=== PATIENT | female | born 1945 | race Caucasian/White ===

== ENCOUNTER 2023-05-19 17:01 | Inpatient (IN) | payer MEDICARE ==
[~2023-05-19] VITALS: Ht 157.5 cm; Wt 68.0 kg
[2023-05-19] MEDS ORDERED: potassium Cl 40MEQ/1/2NS 520ml 520 ML IV PRN (20:05)
[2023-05-19] MEDS ORDERED: magnesium 2GM in 50ml NS 50 ML IV PRN (20:05)
[2023-05-19] MEDS ORDERED: potassium Cl 20 mEq SR tablet PO PRN ×2 (20:05)
[2023-05-19] MEDS ORDERED: normal saline 1000ml 1,000 ML IV SCH (20:05)
[2023-05-19] MEDS ORDERED: acetaminophen 325mg tablet PO PRN ×2 (20:05)
[2023-05-19] MEDS ORDERED: morphine 2 MG/ML inj. syringe IV PRN ×2 (20:05)
[2023-05-19] MEDS ORDERED: magnesium 4gm in 100ml NS 100 ML IV PRN (20:05)
[2023-05-19] MEDS ORDERED: ondansetron/PF 4mg/2ml inj IV PRN (20:05)
[2023-05-19] MEDS ORDERED: magnesium Cl slow-release 64mg tablet PO PRN (20:05)
[2023-05-20] VITALS (10 sets, daily range): BP systolic 134–164; BP diastolic 62–119; PULSE 60–81; RESP 14–22; TEMP 98.5–98.7; O2SAT 97–100
[2023-05-20] MEDS ORDERED: TRIA1TAB3 PO (00:04)
[2023-05-20] MEDS ORDERED: ATEN100T PO (00:04)
[2023-05-20] MEDS ORDERED: OMEP40CA21 PO (00:04)
[2023-05-20] MEDS ORDERED: LIDOcaine Viscous 15ml cup ONE (06:22)
[2023-05-20] MEDS ORDERED: glucagon, human recombinant 1mg kit ONE (06:22)
[2023-05-20] MEDS ORDERED: levoFLOXACIN-Levaquin 500mg/D5 100 ML IV ONE (06:23)
[2023-05-20] MEDS ORDERED: iohexol 300mg/ml 100ml inj. ONE (06:23)
--- NOTE | 2023-05-20 06:30 | NUR ---
PT TO GI VIA WHEELCHAIR
--- NOTE | 2023-05-20 06:49 | NUR ---
CALLED GI, THEY WILL TAKE PT. STRAIGHT TO ROOM [id number] WHEN PROCEDURE IS COMPLETE. REPORT HAS BEEN CALLED TO JEROME PAGAN
[2023-05-20] MEDS ORDERED: MIDAZolam 1 MG/ML 5ML VIAL ONE (06:59)
[2023-05-20] MEDS ORDERED: fentaNYL/PF 50MCG/1 ML 2ML syringe ONE (06:59)
[2023-05-20] MEDS ORDERED: enoxaparin 40mg/0.4ml syringe SUBCUT SCH (08:00)
[2023-05-20] MEDS: ringers solution, lacted 1,000 ML IV SCH ×2 (09:57→15:25)
[2023-05-20 12:10] LABS: MEAN CORPUSCULAR HEMOGLOBIN 29.9 PG (27.0-31.0); MEAN CORPUSCULAR HGB CONC 33.9 g/dL (33.0-36.5)
[2023-05-20 12:13] LABS: HEMATOCRIT 32.4 % (35.0-45.0); MEAN CORPUSCULAR VOLUME 88.1 FL (78-98); MEAN PLATELET VOLUME 11.8 FL (7.4-10.4); PLATELET COUNT 306 X10'3 (140-440); RED BLOOD COUNT 3.68 X10'6 (4.20-5.60); RED CELL DISTRIBUTION WIDTH 15.1 % (11.5-14.5)
[2023-05-20 12:34] LABS: APTT 31 SECONDS (22-32)
[2023-05-20 12:56] LABS: ALANINE AMINOTRANSFERASE 197 U/L (12-78); ALBUMIN 2.4 G/DL (3.4-5.0); ANION GAP 10 (8-16); BILIRUBIN,TOTAL 14.8 MG/DL (0.1-1.0); BLOOD UREA NITROGEN 15 MG/DL (7-18); BUN/CREATININE RATIO 21.4 (10.0-20.0); CALCIUM 9.1 MG/DL (8.5-10.1); CHLORIDE 101 MMOL/L (99-107); SODIUM 139 MMOL/L (135-145); TOTAL CARBON DIOXIDE 27.8 MMOL/L (24-32); eCRCL 52 ML/MIN; eGFR 81 ML/MIN
[2023-05-20 12:58] LABS: ALBUMIN/GLOBULIN RATIO 0.6 (1.1-1.5); ALKALINE PHOSPHATASE 1308 IU/L (46-116); ASPARTATE AMINO TRANSFERASE 216 U/L (10-37); GLUCOSE 94 MG/DL (70-104); POTASSIUM 3.3 MMOL/L (3.5-5.1); TOTAL PROTEIN 6.4 G/DL (6.4-8.2)
[2023-05-20 14:26] LABS: HYPOCHROMASIA 2+; PLATELET ESTIMATE NORMAL; TARGET CELLS 1+; TOTAL CELLS COUNTED 100
--- NOTE | 2023-05-20 18:00 | NUR ---
Patient in room ORTHO 4015. I have received report from EJ Houston and had the opportunity to ask questions and assume patient care.
--- NOTE | 2023-05-20 18:40 | NUR ---
Problems reprioritized. Patient report given, questions answered & plan of care reviewed with EJ Mustafa.
[2023-05-20] MEDS ORDERED: ringers solution, lacted 1,000 ML IV SCH (20:45)
[2023-05-21 06:00] VITALS: BP 167/74; PULSE 71; RESP 16; TEMP 98.2; O2SAT 99
--- NOTE | 2023-05-21 06:11 | NUR ---
Problems reprioritized. Patient report given, questions answered & plan of care reviewed with EJ Houston.
[2023-05-21 06:33] LABS: BASOPHILS # (AUTO) 0.1 X10'3 (0-0.2); BASOPHILS % (AUTO) 0.7 % (0-1); EOSINOPHILS # (AUTO) 0.9 X10'3 (0-0.9); EOSINOPHILS % (AUTO) 12.9 % (0-6); HEMATOCRIT 32.1 % (35.0-45.0); LYMPHOCYTES # (AUTO) 1.5 X10'3 (1.1-4.8); LYMPHOCYTES % (AUTO) 20.2 % (21-51); MEAN CORPUSCULAR HEMOGLOBIN 30.1 PG (27.0-31.0); MEAN CORPUSCULAR HGB CONC 34.3 g/dL (33.0-36.5); MEAN CORPUSCULAR VOLUME 87.8 FL (78-98); MEAN PLATELET VOLUME 11.2 FL (7.4-10.4); MONOCYTES # (AUTO) 0.8 X10'3 (0-0.9); MONOCYTES % (AUTO) 11.8 % (2-12); NEUTROPHILS # (AUTO) 3.9 X10'3 (1.8-7.7); NEUTROPHILS % (AUTO) 54.4 % (42-75); PLATELET COUNT 323 X10'3 (140-440); RED BLOOD COUNT 3.66 X10'6 (4.20-5.60); RED CELL DISTRIBUTION WIDTH 14.9 % (11.5-14.5); WHITE BLOOD COUNT 7.2 X10'3 (4.5-11.0)
[2023-05-21 06:34] LABS: APTT 32 SECONDS (22-32)
[2023-05-21 06:48] LABS: ALANINE AMINOTRANSFERASE 194 U/L (12-78); ALBUMIN 2.3 G/DL (3.4-5.0); ANION GAP 7 (8-16); ASPARTATE AMINO TRANSFERASE 219 U/L (10-37); BILIRUBIN,TOTAL 8.1 MG/DL (0.1-1.0); BLOOD UREA NITROGEN 11 MG/DL (7-18); BUN/CREATININE RATIO 12.2 (10.0-20.0); CALCIUM 8.9 MG/DL (8.5-10.1); CHLORIDE 102 MMOL/L (99-107); GLUCOSE 105 MG/DL (70-104); POTASSIUM 3.4 MMOL/L (3.5-5.1); SODIUM 138 MMOL/L (135-145); TOTAL CARBON DIOXIDE 29.5 MMOL/L (24-32); eCRCL 40 ML/MIN; eGFR 60 ML/MIN
--- NOTE | 2023-05-21 06:54 | NUR ---
Patient in room ORTHO 4015. I have received report from EJ Mustafa and had the opportunity to ask questions and assume patient care.
[2023-05-21 07:02] LABS: ALBUMIN/GLOBULIN RATIO 0.6 (1.1-1.5); ALKALINE PHOSPHATASE 1368 IU/L (46-116); TOTAL PROTEIN 6.2 G/DL (6.4-8.2)
[2023-05-21 07:27] VITALS: BP_SYST 167; PULSE 71
[2023-05-21] MEDS ORDERED: atenolol 50mg tablet PO SCH (08:00)
[2023-05-21 08:50] LABS: LARGE PLATELETS FEW; PLATELET ESTIMATE NORMAL
[2023-05-21] MEDS ORDERED: LISI5TAB22 PO (12:34)
--- NOTE | 2023-05-21 13:40 | NUR ---
pt given discharge packet and was able to ask questions upon discharge. Pt wheelchaired down to lobby with all of her belongings, stable and in no distress. Pt left in a private vehicle with her son.
[2023-05-22] MEDS ORDERED: LISI5TAB22 PO (13:41)
== END 2023-05-21 13:40 | disposition home or self-care (01) | DRG 435 ==
LOC: ER 17:04 → UNDOADMIN 20:10 → ED HOLD 20:10 → EDBEDREQSVC 05-20 06:08 → EDBEDREQ 05-20 06:08 → ORTHO 4S 05-20 09:28
PROVIDERS: ADMIT Internal Medicine; ATTEND Internal Medicine
PROC: 0F798DZ Dilation of Common Bile Duct with Intraluminal Device, Via Natural or Artificial Opening Endoscopic (ICD-10-PCS; principal; 2023-05-20)
DX: C25.9 Malignant neoplasm of pancreas, unspecified (principal); K83.1 Obstruction of bile duct; B17.9 Acute viral hepatitis, unspecified; R17 Unspecified jaundice; K86.9 Disease of pancreas, unspecified; K21.9 Gastro-esophageal reflux disease without esophagitis; I10 Essential (primary) hypertension
CPT/HCPCS: 36415; 43261; 43274; 80053; 82378; 83605; 83690; 85007; 85008; 85025; 85730; 86301; 87040; 88108; 99152; 99153; 99285; A4620; C1769; C2625; G0378; J1610; J1956; J2250; J3010; J7030; J7120; Q9967